=== PATIENT | female | born 2000 | race Caucasian/White ===

== ENCOUNTER 2023-09-10 12:39 | Emergency (ER) | payer OTHER ==
[~2023-09-10] VITALS: Ht 165.1 cm; Wt 86.2 kg
[~2023-09-10 12:39] MED LIST: AMOX250C31; IBUP-1842
[2023-09-10 13:17] VITALS: BP 121/76; PULSE 111; TEMP 101.3; O2SAT 20
[2023-09-10] MEDS ORDERED: IBUPROFEN 400 MG TAB PO ONE (13:25)
[2023-09-10] MEDS ORDERED: CRUSHER, PILL MC ONE (13:37)
[2023-09-10 14:24] LABS: FLU A ANTIGEN negative (NEGATIVE); FLU B ANTIGEN NEGATIVE (NEGATIVE)
[2023-09-10] MEDS ORDERED: BENZ-300 PO (14:44)
[2023-09-10] MEDS ORDERED: IBUP-2230 PO (14:44)
[2023-09-12] MEDS ORDERED: AMOX500C25 PO (11:43)
== END 2023-09-10 14:56 | disposition home or self-care (01) ==
LOC: MED 12:39
DX: J06.9 Acute upper respiratory infection, unspecified (principal); Z20.822 Contact with and (suspected) exposure to COVID-19; Z79.899 Other long term (current) drug therapy
CPT/HCPCS: 87081; 99283